=== PATIENT | male | born 1955 | race Caucasian/White ===

== ENCOUNTER 2023-09-18 21:47 | Emergency (ER) | payer MEDICARE ==
[~2023-09-18] VITALS: Ht 177.8 cm; Wt 122.5 kg
[~2023-09-18 21:47] MED LIST: ASPIRIN EC81 MG PO; CEPHALEXIN500 MG PO; CRESTOR10 MG PO; DOXYCYCLINE HY100 MG PO; METFORMIN HCL500 M1 PO; METOPROLOL SUCC50 MG PO; MULTI-VITAMIN1 EACH PO; NIFEDIPINE ER30 MG; OMEGA-31000 MG PO; VIAGRA25 MG
[2023-09-18 22:25] LABS: BASOPHILS # (AUTO) 0.1 (0.0-0.1); BASOPHILS % 0.6 % (0.0-1.0); EOSINOPHILS # (AUTO) 0.3 (0.0-0.4); EOSINOPHILS % 3.1 % (0.0-6.0); HEMATOCRIT 43.6 % (38.2-49.6); LYMPHOCYTES # (AUTO) 2.3 (1.0-3.2); LYMPHOCYTES % 22.5 % (18.0-39.1); MEAN CORPUSCULAR HEMOGLOBIN 29.1 pg (28-32); MEAN CORPUSCULAR HGB CONC 32.1 g/dL (31-35); MEAN CORPUSCULAR VOLUME 90.6 fL (81-99); MONOCYTES # (AUTO) 0.7 (0.2-0.8); NEUTROPHILS # (AUTO) 6.9 (2.1-6.9); NEUTROPHILS % 66.5 % (38.7-80.0); PLATELET COUNT 202 x10e3/uL (140-360); RED BLOOD COUNT 4.81 x10e6/uL (4.3-5.7); RED CELL DISTRIBUTION WIDTH 14.2 % (11.7-14.4); WHITE BLOOD COUNT 10.35 x10e3/uL (4.8-10.8)
[2023-09-18 22:44] LABS: ALBUMIN 3.9 g/dL (3.5-5.0); ANION GAP 14.2 mmol/L (8-16); BILIRUBIN,TOTAL 0.5 mg/dL (0.2-1.2); CALCIUM 9.7 mg/dL (8.4-10.2); CREATININE, SERUM 0.84 mg/dL (0.72-1.25); POTASSIUM 4.2 mmol/L (3.5-5.1); TOTAL PROTEIN 7.5 g/dL (6.5-8.1)
[2023-09-18 22:45] LABS: ALBUMIN/GLOBULIN RATIO 1.1 (0.8-2.0)
[2023-09-18 22:50] LABS: TROPONIN I 0.001 ng/mL (0-0.300)
[2023-09-18 23:13] VITALS: BP 131/80
[2023-09-19 00:17] VITALS: PULSE 68; RESP 20
[2023-09-19 00:54] VITALS: PULSE 78; RESP 18; TEMP 98.6; O2SAT 96
== END 2023-09-19 00:30 | disposition home or self-care (01) ==
LOC: ER 22:07
DX: I16.0 Hypertensive urgency (principal); I10 Essential (primary) hypertension; E11.9 Type 2 diabetes mellitus without complications; E78.5 Hyperlipidemia, unspecified
CPT/HCPCS: 36415; 71045; 80053; 82550; 83690; 83880; 84484; 85025; 93005; 99284

== ENCOUNTER 2024-08-04 09:40 | Inpatient (IN) | payer MEDICARE ==
[~2024-08-04] VITALS: Ht 180.3 cm; Wt 117.9 kg
[2024-08-04] VITALS (7 sets, daily range): BP systolic 116; BP diastolic 49; PULSE 66–75; RESP 17–20; TEMP 97.5–98.4; O2SAT 94–100
[2024-08-04] MEDS: SODIUM CHLORIDE 0.9% 1000ML 1,000 ML IV STA (09:59)
[2024-08-04] MEDS: METHYLPREDNISOLONE SOD SUCC 125 MG/2ML VIAL IV STA (09:59)
[2024-08-04] MEDS: ALBUTEROL/IPRATROPIUM 3 ML NEB NEB ONE (10:10)
[2024-08-04 10:13] LABS: BASOPHILS % 0.3 % (0.0-1.0); EOSINOPHILS # (AUTO) 0.2 (0.0-0.4); EOSINOPHILS % 2.4 % (0.0-6.0); HEMOGLOBIN 14.3 g/dL (14.0-18.0); LYMPHOCYTES # (AUTO) 1.6 (1.0-3.2); LYMPHOCYTES % 20.2 % (18.0-39.1); MEAN CORPUSCULAR HEMOGLOBIN 29.8 pg (28-32); MEAN CORPUSCULAR HGB CONC 33.3 g/dL (31-35); MEAN CORPUSCULAR VOLUME 89.6 fL (81-99); MONOCYTES # (AUTO) 0.6 (0.2-0.8); MONOCYTES % 7.1 % (4.4-11.3); NEUTROPHILS # (AUTO) 5.5 (2.1-6.9); NEUTROPHILS % 69.7 % (38.7-80.0); PLATELET COUNT 184 x10e3/uL (140-360); WHITE BLOOD COUNT 7.84 x10e3/uL (4.8-10.8)
[2024-08-04 10:18] LABS: ALBUMIN/GLOBULIN RATIO 1.2 (0.8-2.0); ANION GAP 15.2 mmol/L (8-16); BILIRUBIN,TOTAL 0.6 mg/dL (0.2-1.2); CALCIUM 8.8 mg/dL (8.4-10.2); CREATININE, SERUM 0.77 mg/dL (0.72-1.25); POTASSIUM 4.2 mmol/L (3.5-5.1); TOTAL PROTEIN 7.4 g/dL (6.5-8.1)
[2024-08-04] MEDS ORDERED: SODIUM CHLORIDE 0.9% 500ML 500 ML ONE (11:07)
[2024-08-04] MEDS ORDERED: IOPAMIDOL 370 MG/ML 100 ML INFUS..BTL INJ ONE (11:08)
[2024-08-04] MEDS ORDERED: SODIUM CHLORIDE 0.9% 100 ML ONE (11:08)
[2024-08-04] MEDS ORDERED: SODIUM CHLORIDE 0.9% 500ML 500 ML IV ONE (11:15)
[2024-08-04] MEDS ORDERED: ONDANSETRON HCL INJ 2MG/ML 2ML 2 MG/ML VIAL IV PRN (12:00)
[2024-08-04 12:39] LABS: TROPONIN I 0.008 ng/mL (0-0.300)
[2024-08-04] MEDS ORDERED: ACETAMINOPHEN 325 MG TAB PO PRN (14:00)
[2024-08-04] MEDS ORDERED: DEXTROSE 50% SYRINGE 50 ML IV PRN ×2 (14:00→15:15)
[2024-08-04] MEDS ORDERED: LIDOCAINE 4% PATCH TP PRN (14:00)
[2024-08-04] MEDS ORDERED: MELATONIN 5 MG TABLET PO PRN (14:00)
[2024-08-04] MEDS ORDERED: DOCUSATE SODIUM 100 MG CAP PO PRN (14:00)
[2024-08-04] MEDS ORDERED: POTASSIUM CHLORIDE 20 MEQ TAB CR PO PRN (14:00)
[2024-08-04] MEDS ORDERED: ALBUTEROL/IPRATROPIUM 3 ML NEB NEB PRN (14:00)
[2024-08-04] MEDS ORDERED: HYDRALAZINE HCL 20 MG/ML VIAL IV PRN (14:00)
[2024-08-04] MEDS ORDERED: SIMETHICONE 80 MG CHEW PO PRN (14:00)
[2024-08-04] MEDS ORDERED: DIPHENHYDRAMINE HCL 25 MG CAP PO PRN (14:00)
[2024-08-04] MEDS: ALBUTEROL/IPRATROPIUM 3 ML NEB NEB SCH ×2 (14:16→19:16)
[2024-08-04] MEDS: METHYLPREDNISOLONE SOD SUCC 125 MG/2ML VIAL IV SCH (15:17)
[2024-08-04] MEDS: SODIUM CHLORIDE 0.9% 1000ML 1,000 ML IV SCH (15:18)
[2024-08-04] MEDS: Doxycycline IV 100 MG in SODIUM CHLORIDE 0.9% 100 ML IV SCH (15:18)
[2024-08-04] MEDS: ENOXAPARIN SOD INJ 40 MG/0.4 ML SYR SC SCH (17:08)
[2024-08-04] MEDS: INSULIN LISPRO 100 UNIT/1 ML 3ML VIAL SQ SCH (17:10)
[2024-08-04] MEDS ORDERED: METHYLPREDNISOLONE SOD SUCC 125 MG/2ML VIAL IV SCH (18:00)
[2024-08-04] MEDS: SIMVASTATIN 20 MG TAB PO SCH (20:45)
[2024-08-04] MEDS: BENZONATATE 100 MG CAP PO PRN (20:55)
[2024-08-05] VITALS (10 sets, daily range): BP systolic 137–147; BP diastolic 57–68; PULSE 69–103; RESP 18–22; TEMP 97.7–97.9; O2SAT 96–100
[2024-08-05 05:56] LABS: HEMATOCRIT 38.6 % (38.2-49.6); HEMOGLOBIN 12.7 g/dL (14.0-18.0); LYMPHOCYTES # (AUTO) 0.7 (1.0-3.2); LYMPHOCYTES % 5.3 % (18.0-39.1); MEAN CORPUSCULAR HEMOGLOBIN 29.6 pg (28-32); MEAN CORPUSCULAR HGB CONC 32.9 g/dL (31-35); MONOCYTES # (AUTO) 0.3 (0.2-0.8); MONOCYTES % 2.4 % (4.4-11.3); NEUTROPHILS # (AUTO) 11.2 (2.1-6.9); NEUTROPHILS % 91.8 % (38.7-80.0); PLATELET COUNT 169 x10e3/uL (140-360); RED BLOOD COUNT 4.29 x10e6/uL (4.3-5.7); RED CELL DISTRIBUTION WIDTH 14.2 % (11.7-14.4); WHITE BLOOD COUNT 12.18 x10e3/uL (4.8-10.8)
[2024-08-05 06:28] LABS: ALBUMIN 3.6 g/dL (3.5-5.0); ALBUMIN/GLOBULIN RATIO 1.2 (0.8-2.0); ANION GAP 13.1 mmol/L (8-16); BILIRUBIN,TOTAL 0.3 mg/dL (0.2-1.2); CALCIUM 8.2 mg/dL (8.4-10.2); CREATININE, SERUM 0.76 mg/dL (0.72-1.25); POTASSIUM 4.1 mmol/L (3.5-5.1); TOTAL PROTEIN 6.5 g/dL (6.5-8.1)
[2024-08-05 06:51] LABS: TROPONIN I 0.008 ng/mL (0-0.300)
[2024-08-05] MEDS: METOPROLOL SUCCINATE 50 MG TAB XL PO SCH (08:35)
[2024-08-05] MEDS: PANTOPRAZOLE SOD 40 MG TABEC PO SCH (08:35)
[2024-08-05] MEDS: ASPIRIN 81 MG ENTERIC COATED PO SCH (08:35)
[2024-08-05] MEDS ORDERED: GUAIFENESIN/CODEINE 5 ML LIQD PO PRN (14:00)
[2024-08-05 15:32] LABS: ANION GAP 12.2 mmol/L (8-16); CALCIUM 8.3 mg/dL (8.4-10.2); CREATININE, SERUM 0.79 mg/dL (0.72-1.25); POTASSIUM 4.2 mmol/L (3.5-5.1)
[2024-08-05 15:59] LABS: TROPONIN I 0.008 ng/mL (0-0.300)
[2024-08-06] VITALS (10 sets, daily range): BP systolic 136–150; BP diastolic 55–73; PULSE 67–91; RESP 18–20; TEMP 97.5–98.1; O2SAT 95–98
[2024-08-06] MEDS: METHYLPREDNISOLONE SOD SUCC 40 MG/ML VIAL 1ML IV SCH (09:13)
== END 2024-08-06 14:40 | disposition home or self-care (01) | DRG 190 ==
LOC: ER 09:50 → ERHOLD 12:01 → MED/SURG 13:13
PROVIDERS: ADMIT Internal Medicine; ATTEND Internal Medicine
DX: J44.1 Chronic obstructive pulmonary disease with (acute) exacerbation (principal); J96.21 Acute and chronic respiratory failure with hypoxia; I10 Essential (primary) hypertension; E78.5 Hyperlipidemia, unspecified; E11.9 Type 2 diabetes mellitus without complications; J06.9 Acute upper respiratory infection, unspecified; Z85.828 Personal history of other malignant neoplasm of skin; Z88.8 Allergy status to other drugs, medicaments and biological substances; Z79.84 Long term (current) use of oral hypoglycemic drugs; Z79.82 Long term (current) use of aspirin; F17.210 Nicotine dependence, cigarettes, uncomplicated; Z83.3 Family history of diabetes mellitus; Z82.49 Family history of ischemic heart disease and other diseases of the circulatory system
CPT/HCPCS: 36415; 71045; 71260; 80048; 80053; 82550; 82948; 83880; 84484; 85025; 93005; 94640; 94799; 99252; 99284; J1650; J2470; J2919; J7030; J7040; J7050; Q9967